=== PATIENT | male | born 1950 | race Caucasian/White ===

== ENCOUNTER 2018-06-08 21:56 | Emergency (ER) | payer MEDICARE, BC | END 2018-06-08 22:24 | disposition home or self-care (01) | LOC: MADERS 21:56 | DX: I10 Essential (primary) hypertension (principal); I48.91 Unspecified atrial fibrillation; G47.30 Sleep apnea, unspecified; E03.9 Hypothyroidism, unspecified; Z79.899 Other long term (current) drug therapy; Z79.82 Long term (current) use of aspirin | CPT/HCPCS: 99283 ==

== ENCOUNTER 2022-06-15 10:57 | Emergency (ER) | payer MEDICARE, BC ==
[2022-06-15] MEDS ORDERED: CEFAZOLIN 1 GM VIAL ONE (11:07)
[2022-06-15] MEDS ORDERED: Lidocaine 1% w/Epinephrine 1:100K 20 ML VIAL ONE (11:07)
[2022-06-15] MEDS ORDERED: Sodium Chloride 0.9% 200 ML ONE (11:07)
[2022-06-15] MEDS ORDERED: Boostrix 0.5 ML (Tdap) VIAL (>/=7 yrs of age) ONE (11:07)
[2022-06-15] MEDS ORDERED: Bacitracin 1 PK ONE (11:45)
== END 2022-06-15 12:28 | disposition home or self-care (01) ==
LOC: MADERS 10:57
DX: S81.811A Laceration without foreign body, right lower leg, initial encounter (principal); I48.91 Unspecified atrial fibrillation; E03.9 Hypothyroidism, unspecified; I10 Essential (primary) hypertension; Z79.01 Long term (current) use of anticoagulants; Z23 Encounter for immunization; W20.8XXA Other cause of strike by thrown, projected or falling object, initial encounter
CPT/HCPCS: 12002; 90471; 90715; 96365; J0690